=== PATIENT | female | born 1950 | race Caucasian/White ===

== ENCOUNTER 2017-02-13 14:11 | Emergency (ER) | payer OTHER, MEDICARE ==
[~2017-02-13] VITALS: Ht 165.1 cm; Wt 56.0 kg
[2017-02-13] MEDS ORDERED: CLON0.5T20 PO (14:46)
[2017-02-13] MEDS ORDERED: NITROGLYCERIN SINGLE TAB 0.4 MG SL ONE (14:53)
[2017-02-13] MEDS ORDERED: ASPIRIN 81 MG TABLET CHEW ONE (14:53)
[2017-02-13] MEDS ORDERED: ASPIRIN 81 MG TABLET CHEW PO ONE (15:00)
[2017-02-13] MEDS ORDERED: SODIUM CHLORIDE FLUSH 10ML SYR IVF ONE (15:00)
[2017-02-13] MEDS: NITROGLYCERIN SINGLE TAB 0.4 MG SL PRN ×3 (15:13→15:23)
[2017-02-13 15:40] LABS: BLOOD UREA NITROGEN 13 mg/dL (7-18)
[2017-02-13 16:24] VITALS: BP 116/68
[2017-02-14] MEDS ORDERED: LORA1TAB PO (08:23)
[2017-02-14] MEDS ORDERED: CYCL5TAB PO (15:03)
[2017-02-14] MEDS ORDERED: IBUP-1222 PO (15:03)
== END 2017-02-13 16:26 | disposition home or self-care (01) ==
LOC: ED 15:48
DX: R07.89 Other chest pain (principal); F41.1 Generalized anxiety disorder
CPT/HCPCS: 36415; 71010; 80048; 82040; 83880; 84484; 85025; 85610; 85730; 93005

== ENCOUNTER 2017-02-14 08:08 | Observation (INO) | payer MEDICARE, OTHER ==
[~2017-02-14] VITALS: Ht 165.1 cm; Wt 54.1 kg
[~2017-02-14 08:08] MED LIST: CLON0.5T20 PO
[2017-02-14] MEDS ORDERED: LORA1TAB PO (08:23)
[2017-02-14] MEDS ORDERED: ASPIRIN 81 MG TABLET CHEW PO ONE (08:30)
[2017-02-14] MEDS ORDERED: NITROGLYCERIN OINT 2%, 1GM TP ONE ×2 (08:34→09:00)
[2017-02-14] MEDS ORDERED: ASPIRIN 81 MG TABLET CHEW ONE (08:34)
[2017-02-14 09:00] LABS: BLOOD UREA NITROGEN 11 mg/dL (7-18)
[2017-02-14 09:05] LABS: IS PT STATUS REG ER OR PRE ER? YES
[2017-02-14] MEDS ORDERED: KETOROLAC 30 MG/1 ML ONE (10:11)
[2017-02-14] MEDS ORDERED: OMNIPAQUE 350 MG/ML, 100ML BOTTLE ONE (10:26)
[2017-02-14] MEDS ORDERED: KETOROLAC 30 MG/1 ML IVPush ONE (10:30)
[2017-02-14] MEDS ORDERED: morphine SULFATE 10 MG/ML, 1ML IVPush PRN (10:30)
[2017-02-14] MEDS ORDERED: ACETAMINOPHEN 325 MG TABLET PO PRN (10:30)
[2017-02-14] MEDS ORDERED: ONDANSETRON 2MG/ML, 2ML IVPush PRN (10:30)
[2017-02-14] MEDS ORDERED: LORazepam 1MG TABLET PO PRN (10:30)
[2017-02-14 10:57] VITALS: BP 135/80
[2017-02-14 11:14] LABS: IS PT STATUS REG ER OR PRE ER? NO
[2017-02-14 14:20] VITALS: BP 118/72
[2017-02-14] MEDS ORDERED: IBUP-1222 PO (15:03)
[2017-02-14] MEDS ORDERED: CYCL5TAB PO (15:03)
[2017-02-14] MEDS ORDERED: SODIUM CHLORIDE FLUSH 3ML SYRINGE IVF SCH (21:00)
== END 2017-02-14 16:40 | disposition home or self-care (01) ==
LOC: ED 08:27 → EDIP 09:21 → INTOOBSV 09:21 → SUATTDRO 09:40 → 5SO 10:50
DX: R07.89 Other chest pain (principal); F41.9 Anxiety disorder, unspecified; E87.1 Hypo-osmolality and hyponatremia; I48.0 Paroxysmal atrial fibrillation; Z80.3 Family history of malignant neoplasm of breast; Z82.49 Family history of ischemic heart disease and other diseases of the circulatory system
CPT/HCPCS: 36415; 71010; 71275; 80048; 82040; 84484; 85025; 85379; 85651; 86141; 93005; 93306; 99285; G0378; Q9967

== ENCOUNTER → 2017-11-02 | Outpatient (CLI) | payer MEDICARE, OTHER ==
[~2017-11-02] MED LIST changes: +CYCL5TAB PO; +IBUP-1222 PO; +LORA1TAB PO
== END | disposition home or self-care (01) ==
LOC: CFH 15:39
PROVIDERS: ATTEND Physician Assistant
DX: S82.91XA Unspecified fracture of right lower leg, initial encounter for closed fracture (principal); X58.XXXA Exposure to other specified factors, initial encounter; Y93.89 Activity, other specified; Y92.89 Other specified places as the place of occurrence of the external cause; Y99.8 Other external cause status

== ENCOUNTER 2017-11-06 07:36 | Day surgery (SDC) | payer OTHER ==
[~2017-11-06] VITALS: Ht 165.1 cm; Wt 55.3 kg
[2017-11-06] MEDS ORDERED: LACTATED RINGERS 1,000 ML IV SCH (08:02)
[2017-11-06 08:06] VITALS: BP 127/72
[2017-11-06] MEDS ORDERED: IBUP-1222 PO (08:28)
[2017-11-06] MEDS ORDERED: CYCL-259 PO (08:28)
[2017-11-06] MEDS ORDERED: PLEASE ENTER HEIGHT AND WEIGHT MC SCH (08:30)
[2017-11-06] MEDS ORDERED: LIDOCAINE 1%, 2ML ONE (08:44)
[2017-11-06] MEDS ORDERED: LIDOCAINE 1%, 2ML SQ PRN (09:00)
[2017-11-06] MEDS ORDERED: ONDANSETRON 2MG/ML, 2ML ONE (09:39)
[2017-11-06] MEDS ORDERED: MIDAZOLAM 1 MG/ML, 2ML ONE (09:39)
[2017-11-06] MEDS ORDERED: PROPOFOL 10 MG/ML, 20ML ONE (09:39)
[2017-11-06] MEDS ORDERED: FENTANYL PF 100 MCG/2ML ONE (09:39)
[2017-11-06] MEDS ORDERED: DEXAMETHASONE 4 MG/ML, 1ML ONE (09:39)
[2017-11-06] MEDS ORDERED: MEPERIDINE/PF 25MG/0.5ML IVPush PRN (10:00)
[2017-11-06] MEDS ORDERED: PROMETHAZINE 12.5 MG SUPP PR PRN (10:00)
[2017-11-06] MEDS ORDERED: LORazepam 2 MG/ML, 1ML IVPush PRN (10:00)
[2017-11-06] MEDS ORDERED: LABETALOL 5MG/ML, 20ML IV PRN (10:00)
[2017-11-06] MEDS ORDERED: OXYcodone 5 MG/5 ML ORAL.SOL UDC PO PRN (10:00)
[2017-11-06] MEDS ORDERED: ACETAMINOPHEN 325 MG TABLET PO PRN (10:00)
[2017-11-06] MEDS ORDERED: HYDROmorphone 1 MG/ML, 1ML IV PRN (10:00)
[2017-11-06] MEDS ORDERED: FENTANYL PF 100 MCG/2ML IV PRN (10:00)
[2017-11-06] MEDS ORDERED: ALBUTEROL SULFATE 2.5 MG/3 ML NPPB PRN (10:00)
[2017-11-06] MEDS ORDERED: hydrALAzine 20 MG/ML, 1ML IV PRN (10:00)
[2017-11-06] MEDS ORDERED: MEPERIDINE/PF 50 MG/ML ONE (11:29)
== END 2017-11-06 13:40 | disposition home or self-care (01) ==
LOC: OUT 07:36
PROVIDERS: ATTEND Orthopaedic Surgery
DX: S93.324A Dislocation of tarsometatarsal joint of right foot, initial encounter (principal); S92.241A Displaced fracture of medial cuneiform of right foot, initial encounter for closed fracture; S92.231A Displaced fracture of intermediate cuneiform of right foot, initial encounter for closed fracture; Z88.8 Allergy status to other drugs, medicaments and biological substances; X58.XXXA Exposure to other specified factors, initial encounter; Y93.89 Activity, other specified; Y92.89 Other specified places as the place of occurrence of the external cause; Y99.8 Other external cause status
CPT/HCPCS: 28465; 28615; 73630; 76001; 93005; C1713; J1100; J2175; J2250; J2405; J2704; J3010; J3490; J7120